=== PATIENT | male | born 1995 | race Caucasian/White ===

== ENCOUNTER 2018-07-23 11:51 | Outpatient (CLI) | payer BC, SELFPAY ==
--- NOTE | 2018-07-23 11:49 | DI.RAD_ITS ---
SYMPTOM/DIAGNOSIS: INJURY LEFT MIDDLE FINGER: 07/23 Three views were obtained and show fracture of the base of the distal phalanx of the middle finger with apparent moderate displacement of a dorsal fracture fragment. No other fracture seen.
== END 2018-07-23 12:11 ==
PROVIDERS: Visit Provider Physician Assistant Surgical
DX: S69.82XA Other specified injuries of left wrist, hand and finger(s), initial encounter (principal); S62.633A Displaced fracture of distal phalanx of left middle finger, initial encounter for closed fracture
CPT/HCPCS: 73140

== ENCOUNTER 2018-08-05 09:16 | Outpatient (CLI) | payer BC, SELFPAY ==
--- NOTE | 2018-08-05 09:01 | DI.RAD_ITS ---
SYMPTOMS/DIAGNOSIS: F/U FX LEFT MIDDLE FINGER: Two views. Comparison 07/23/18. The patient's finger is in a splint. There has been no change in alignment of the fracture involving the posterior aspect of the base of the distal phalanx of the left middle finger.
== END 2018-08-05 09:36 ==
PROVIDERS: Visit Provider Physician Assistant Surgical
DX: S62.633D Displaced fracture of distal phalanx of left middle finger, subsequent encounter for fracture with routine healing (principal)
CPT/HCPCS: 73140